=== PATIENT | female | born 1940 | race Two or more races ===

== ENCOUNTER 2018-11-11 12:28 | Inpatient (IN) | payer OTHER ==
[2018-11-19] MEDS ORDERED: COZAAR25 MG (12:25)
[2018-11-19] MEDS ORDERED: aspirin (12:25)
[2018-11-19] MEDS ORDERED: RANITIDINE HCL (12:26)
[2018-11-30] MEDS ORDERED: RANITIDINE HCL300 MG PO (08:22)
[2018-11-30] MEDS ORDERED: LOSARTAN POTAS100 MG PO (08:23)
[2018-11-30] MEDS ORDERED: ASPIRIN81 MG (08:24)
[2018-12-03] MEDS ORDERED: PERCOCET 5-3251 EACH PO (12:33)
[2018-12-03] MEDS ORDERED: OMEPRAZOLE20 MG PO (12:33)
[2018-12-03] MEDS ORDERED: INTESTINEX680 M1 PO (12:34)
== END 2018-12-03 14:32 | disposition home or self-care (01) | DRG 331 ==
LOC: SURG 11-19 11:15 → O/R 11-30 05:58 → SURH 11-30 05:58 → SURG 11-30 10:30 → SURH 11-30 14:38
PROVIDERS: ADMIT Surgery
PROC: 0DJD8ZZ Inspection of Lower Intestinal Tract, Via Natural or Artificial Opening Endoscopic (ICD-10-PCS; 2018-11-30)
PROC: 0DTN4ZZ Resection of Sigmoid Colon, Percutaneous Endoscopic Approach (ICD-10-PCS; principal; 2018-11-30 10:30)
DX: K57.32 Diverticulitis of large intestine without perforation or abscess without bleeding (principal)

== ENCOUNTER 2020-01-30 06:27 | Day surgery (SDC) | payer OTHER ==
[~2020-01-30 06:27] MED LIST: ASPIRIN81 MG; COZAAR25 MG; INTESTINEX680 M1 PO; LOSARTAN POTAS100 MG PO; OMEPRAZOLE20 MG PO; PERCOCET 5-3251 EACH PO; RANITIDINE HCL; RANITIDINE HCL300 MG PO; aspirin
== END 2020-01-30 12:23 | disposition home or self-care (01) ==
LOC: AMB-ENDOS 06:27
PROVIDERS: ATTEND Surgery
DX: K62.89 Other specified diseases of anus and rectum (principal); Z20.828 Contact with and (suspected) exposure to other viral communicable diseases